=== PATIENT | female | born 1995 | race Caucasian/White ===

== ENCOUNTER 2019-10-21 08:21 | Emergency (ER) | payer BC ==
--- NOTE | 2019-10-21 08:40 | ERPHSYRPT ---
- History of Present Illness Time Seen by Provider: 10/21/19 08:37 Patient Subjective Stated Complaint: vaginal bleeding, 9 wks preg Triage Nursing Assessment: ptt oED c/o vag bleeding and cramping onset 0600 this am. reports being 9 wks preg, not confirmed yet with US. pt reports finding out she was this week, missed period and took home tests. urine sample preg test taken by Jael Vang Thursday. 3 living children, 3 pregnancies in past. denies problems with pregnancies before. rates 1/10 cramping. Physician History: Is a 24-year-old 4 para 3 female with last menstrual period 08/26/2019 who has a history of irregular periods off control pills who presents for mild clot cramping some bleeding and passage of small clots. She had a positive test at her PCP bout 72 hours ago. Timing/Duration: today Activites at Onset: none Quality: cramping Pain Radiation: none Severity of Pain-Max: mild Severity of Pain-Current: mild Prior abdominal problems: none Modifying Factors: Improves With: nothing Allergies/Adverse Reactions: No Known Drug Allergies Allergy (Unverified 10/21/19 08:35) Home Medications: Pnv No.95/Ferrous Fum/Folic AC [ Vitamin Tablet] 1 each PO DAILY 10/21/19 [History] Hx Tetanus, Diphtheria Vaccination/Date Given: Yes Hx Influenza Vaccination/Date Given: Yes Hx Pneumococcal Vaccination/Date Given: No Travel Risk - International Travel Have you traveled outside of the country in past 3 weeks: No - Coronavirus Screening Are you exhibiting any of the following symptoms?: No Close contact with a COVID-19 positive Pt in past 14-21 Days: No - Review of Systems Constitutional: No Fever, No Chills Eyes: No Symptoms Ears, Nose, & Throat: No Symptoms Respiratory: No Cough, No Dyspnea Cardiac: No Chest Pain, No Edema, No Syncope Abdominal/Gastrointestinal: No Abdominal Pain, No Nausea, No Vomiting, No Diarrhea Genitourinary Symptoms: Vaginal Bleeding, No Dysuria Musculoskeletal: No Back Pain, No Neck Pain Skin: No Rash Neurological: No Dizziness, No Focal Weakness, No Sensory Changes Psychological: No Symptoms Endocrine: No Symptoms All Other Systems: Reviewed and Negative - Past Medical History Pertinent Past Medical History: No Other Medical History: 3 vaginal deliveries - Past Surgical History Past Surgical History: No - Social History Smoking Status: Never smoker Exposure to second hand smoke: No Drug Use: none Patient Lives Alone: No - Female History Hx Now: Yes - Nursing Vital Signs Nursing Vital Signs: Initial Vital Signs Temperature 97.9 F 10/21/19 08:25 Pulse Rate 64 10/21/19 08:25 Respiratory Rate 16 10/21/19 08:25 Blood Pressure 110/73 10/21/19 08:25 O2 Sat by Pulse Oximetry 99 10/21/19 08:25 Pain Scale Pain Intensity 1 - Physical Exam General Appearance: no apparent distress, alert Eye Exam: PERRL/EOMI, eyes nml inspection Ears, Nose, Throat Exam: normal ENT inspection, TMs normal, pharynx normal, moist mucous membranes Neck Exam: normal inspection, non-tender, supple, full range of motion Respiratory Exam: normal breath sounds, lungs clear, No respiratory distress Cardiovascular Exam: regular rate/rhythm, normal heart sounds, normal peripheral pulses Gastrointestinal/Abdomen Exam: soft, No tenderness, No mass Back Exam: normal inspection, normal range of motion, No CVA tenderness, No vertebral tenderness Extremity Exam: normal inspection, normal range of motion, pelvis stable Neurologic Exam: alert, oriented x 3, cooperative, racking technician II-XII nml as tested, normal mood/affect, sensation nml, No motor deficits Skin Exam: normal color, warm, dry Lymphatic Exam: No adenopathy - Course Nursing assessment & vital signs reviewed: Yes Ordered Tests: Active Orders 24 hr Category Date Time Status OB <14 WKS 1ST GESTATION [US] Stat Exams 10/21/19 08:46 Completed CBC W DIFF Stat Lab 10/21/19 09:25 Completed CMP Stat Lab 10/21/19 09:25 Completed CULTURE,URINE Stat Lab 10/21/19 08:50 Received HCG, Quantitative (Inhouse) Stat Lab 10/21/19 09:25 Completed UA W/RFX UR CULTURE Stat Lab 10/21/19 08:50 Completed Lab/Rad Data: Laboratory Result Diagrams 10/21/19 09:25 10/21/19 09:25 Laboratory Results 10/21/19 10/21/19 10/21/19 Range/Units 09:25 09:25 08:50 WBC 8.3 (4.0-10.5) K/mm3 RBC 4.58 (4.1-5.4) M/mm3 Hgb 13.7 (12.0-16.0) gm/dl Hct 42.3 (35-47) % MCV 92.4 (78-100) fl MCH 29.9 (26-32) pg MCHC 32.4 (32-36) g/dl RDW 12.9 (11.5-14.0) % Plt Count 176 (150-450) K/mm3 MPV 11.4 H (7.5-11.0) fl Gran % 71.5 H (36.0-66.0) % Eos # (Auto) 0.11 (0-0.5) Absolute Lymphs (auto) 1.53 (1.0-4.6) Absolute Monos (auto) 0.70 (0.0-1.3) Lymphocytes % 18.5 L (24.0-44.0) % Monocytes % 8.5 (0.0-12.0) % Eosinophils % 1.3 (0.00-5.0) % Basophils % 0.2 (0.0-0.4) % Absolute Granulocytes 5.89 (1.4-6.9) Basophils # 0.02 (0-0.4) Sodium 139 (137-145) mmol/L Potassium 4.0 (3.5-5.1) mmol/L Chloride 107 (98-107) mmol/L Carbon Dioxide 24 (22-30) mmol/L Anion Gap 11.5 (5-15) MEQ/L BUN 12 (7-17) mg/dL Creatinine 0.70 (0.52-1.04) mg/dL Estimated GFR > 60.0 ML/MIN Glucose 105 (74-106) mg/dL Calcium 9.3 (8.4-10.2) mg/dL Total Bilirubin 0.40 (0.2-1.3) mg/dL AST 16 (14-36) U/L ALT 14 (0-35) U/L Alkaline Phosphatase 64 (38-126) U/L Serum Total Protein 7.0 (6.3-8.2) g/dL Albumin 4.2 (3.5-5.0) g/dL Beta HCG, Quant 26.71 mIU/ml Urine Color RED (YELLOW) Urine Appearance CLOUDY (CLEAR) Urine pH 5.0 (5-6) Ur Specific [place] 1.027 (1.005-1.025) Urine Protein 100 (Negative) Urine Ketones NEGATIVE (NEGATIVE) Urine Blood LARGE (0-5) Vito/ul Urine Nitrite NEGATIVE (NEGATIVE) Urine Bilirubin NEGATIVE (NEGATIVE) Urine Urobilinogen NEGATIVE (0-1) mg/dL Ur Leukocyte Esterase SMALL (NEGATIVE) Urine WBC (Auto) 16-25 (0-5) /HPF Urine RBC (Auto) >101 (0-2) /HPF U Epithel Cells (Auto) RARE (FEW) /HPF Urine Bacteria (Auto) NONE (NEGATIVE) /HPF Urine Mucus (Auto) SLIGHT (NEGATIVE) /HPF Urine Culture Reflexed YES (NO) Urine Glucose NEGATIVE (NEGATIVE) mg/dL - Progress Progress: unchanged Air Movement: good Progress Note: 10/21/19 10:29 Findings on the ultrasound of a possible developing gestational sac and a hCG of 26.71 are consistent with either an early or a miscarriage.she was instructed with the importance of following up with Viktoria Vang and repeat serial hCGs to determine viability of the . Blood Culture(s) Obtained: No Antibiotics given: No - Departure Departure Disposition: Home Clinical Impression: Early stage of Condition: Stable Critical Care Time: No Instructions: Bleeding With (DC)
[2019-10-21 09:13] VITALS: BP 116/76
[2019-10-21 09:30] LABS: Absolute Neutrophil Ct (ANC) 5.89 (1.4-6.9); BASOPHIL % 0.2 % (0.0-0.4); Basophil (Absolute #) 0.02 (0-0.4); Eosinophil % 1.3 % (0.00-5.0); Eosinophil (Absolute #) 0.11 (0-0.5); Hematocrit 42.3 % (35-47); Hemoglobin 13.7 gm/dl (12.0-16.0); Lymphocyte (Absolute #) 1.53 (1.0-4.6); Lymphocytes % 18.5 % (24.0-44.0); Mean Cell Volume 92.4 fl (78-100); Mean Corpuscular Hemoglobin 29.9 pg (26-32); Mean Corpuscular Hgb Concent. 32.4 g/dl (32-36); Mean Platelet Volume 11.4 fl (7.5-11.0); Monocytes % 8.5 % (0.0-12.0); Neutrophil % 71.5 % (36.0-66.0); Platelet Count 176 K/mm3 (150-450); Red Blood Count 4.58 M/mm3 (4.1-5.4); Red Cell Distribution Width 12.9 % (11.5-14.0); White Blood Count 8.3 K/mm3 (4.0-10.5)
[2019-10-21 09:31] LABS: Appearance CLOUDY (CLEAR); Bilirubin NEGATIVE (NEGATIVE); Blood LARGE Ery/ul (0-5); Epithelial Cells RARE /HPF (FEW); Glucose NEGATIVE (NEGATIVE); Ketones NEGATIVE (NEGATIVE); Leukocyte Esterase SMALL (NEGATIVE); Mucus SLIGHT /HPF (NEGATIVE); Nitrite NEGATIVE (NEGATIVE); Protein,Urine Dip 100 (Negative); Specific Gravity 1.027 (1.005-1.025); Urobilinogen NEGATIVE mg/dL (0-1)
[2019-10-21 09:32] LABS: RBC >101 /HPF (0-2)
--- NOTE | 2019-10-21 09:48 | XRAY ---
Indication: Bleeding and cramping. Two-dimensional transvaginal early OB ultrasound performed. Comparison: None Uterus is retroflexed measuring 7.6 x 5.1 x 4.2 cm. Myometrium appears homogeneous. Endometrial cavity demonstrates a tiny 3 mm cystic mass, possibly a developing gestational sac too small to calculate gestational age. No pole, heart tones, or fluid collection. Endometrial stripe measures 6.7 mm. Right ovary measures 1.7 x 2.7 x 1.7 cm and the left measures 2.9 x 1.9 x 1.4 cm with normal follicular cysts and perfusion bilaterally. No suspicious adnexal mass or free fluid. Impression: Tiny intrauterine cystic mass, possibly a developing gestational sac. No pole/heart tones. Correlate with serial beta hCG and follow-up sonogram regarding viability. Remaining sonogram is negative.
[2019-10-21 09:59] LABS: ALBUMIN 4.2 g/dL (3.5-5.0); ALKALINE PHOSPHATASE 64 U/L (38-126); ANION GAP 11.5 MEQ/L (5-15); BLOOD UREA NITROGEN 12 mg/dL (7-17); CHLORIDE 107 mmol/L (98-107); Calcium 9.3 mg/dL (8.4-10.2); Carbon Dioxide 24 mmol/L (22-30); EST GLOMERULAR FILTRATION RATE > 60.0 ML/MIN; Glucose 105 mg/dL (74-106); HCG, Quantitative (Inhouse) 26.71 mIU/ml; SGOT/AST 16 U/L (14-36); SGPT/ALT 14 U/L (0-35); SODIUM 139 mmol/L (137-145)
[2019-10-21 10:03] VITALS: PULSE 75; O2SAT 98
== END 2019-10-21 10:37 | disposition home or self-care (01) ==
LOC: ED 08:21
DX: O20.9 Hemorrhage in early pregnancy, unspecified (principal); Z3A.09 9 weeks gestation of pregnancy
CPT/HCPCS: 36415; 76801; 80053; 81001; 84702; 85025; 87086; 99284

== ENCOUNTER 2020-07-15 14:43 | Observation (INO) | payer MEDICAID ==
[2020-07-15 15:46] VITALS: BP 127/85; PULSE 109; O2SAT 97
[2020-07-15 15:50] LABS: Appearance SLIGHTLY CLOUDY (CLEAR); Bacteria FEW /HPF (NEGATIVE); Bilirubin NEGATIVE (NEGATIVE); Blood NEGATIVE Ery/ul (0-5); Epithelial Cells MODERATE /HPF (FEW); Glucose NEGATIVE (NEGATIVE); Ketones TRACE (NEGATIVE); Leukocyte Esterase SMALL (NEGATIVE); Mucus SLIGHT /HPF (NEGATIVE); Nitrite NEGATIVE (NEGATIVE); Protein,Urine Dip 30 (Negative); RBC 0-2 /HPF (0-2); Specific Gravity 1.018 (1.005-1.025); Urobilinogen 2 mg/dL (0-1)
[2020-07-15 15:58] LABS: Amphetamine,Urine NEGATIVE (NEGATIVE); Barbiturate,Urine NEGATIVE (NEGATIVE); Benzodiazepine,Urine NEGATIVE (NEGATIVE); Cocaine,Urine NEGATIVE (NEGATIVE); Methadone,Urine NEGATIVE (NEGATIVE); Opiate,Urine NEGATIVE (NEGATIVE); PCP,Urine NEGATIVE (NEGATIVE); THC,Urine NEGATIVE (NEGATIVE)
== END 2020-07-15 17:19 | disposition home or self-care (01) ==
LOC: OB 14:43
PROVIDERS: ADMIT Family Medicine; ATTEND Family Medicine
DX: Z34.82 Encounter for supervision of other normal pregnancy, second trimester (principal); Z3A.34 34 weeks gestation of pregnancy
CPT/HCPCS: 80307; 81001; 87086; G0378

== ENCOUNTER 2020-07-25 17:20 | Observation (INO) | payer MEDICAID ==
[2020-07-25] MEDS ORDERED: Lactated Ringers 1,000 ML IV ONE ×2 (18:05→18:10)
[2020-07-25 19:00] LABS: BASOPHIL % 0.3 % (0.0-0.4); Basophil (Absolute #) 0.02 (0-0.4); Eosinophil % 0.5 % (0.00-5.0); Eosinophil (Absolute #) 0.03 (0-0.5); Hematocrit 33.9 % (35-47); Hemoglobin 10.4 gm/dl (12.0-16.0); Lymphocyte (Absolute #) 0.93 (1.0-4.6); Mean Cell Volume 90.6 fl (78-100); Mean Corpuscular Hemoglobin 27.8 pg (26-32); Mean Corpuscular Hgb Concent. 30.7 g/dl (32-36); Mean Platelet Volume 11.1 fl (7.5-11.0); Monocyte (Absolute #) 0.51 (0.0-1.3); Monocytes % 8.2 % (0.0-12.0); Platelet Count 157 K/mm3 (150-450); Red Blood Count 3.74 M/mm3 (4.1-5.4); Red Cell Distribution Width 14.6 % (11.5-14.0); White Blood Count 6.2 K/mm3 (4.0-10.5)
[2020-07-25 19:11] VITALS: BP 120/74; PULSE 93
[2020-07-25 19:12] LABS: ALBUMIN 3.5 g/dL (3.5-5.0); ALKALINE PHOSPHATASE 138 U/L (38-126); ANION GAP 12.3 MEQ/L (5-15); BLOOD UREA NITROGEN 4 mg/dL (7-17); CHLORIDE 106 mmol/L (98-107); Calcium 9.1 mg/dL (8.4-10.2); Carbon Dioxide 22 mmol/L (22-30); Creatinine 1 0.45 mg/dL (0.52-1.04); EST GLOMERULAR FILTRATION RATE > 60.0 ML/MIN; Glucose 80 mg/dL (74-106); Potassium 3.8 mmol/L (3.5-5.1); SGOT/AST 16 U/L (14-36); SGPT/ALT 10 U/L (0-35); SODIUM 136 mmol/L (137-145); Total Protein 6.5 g/dL (6.3-8.2)
[2020-07-25 19:13] LABS: Creatinine, Urine Random 48.9 mg/dl
== END 2020-07-25 20:50 | disposition home or self-care (01) ==
LOC: OB 17:20 → MED SURG 17:45
PROVIDERS: ADMIT Family Medicine; ATTEND Family Medicine
DX: Z34.83 Encounter for supervision of other normal pregnancy, third trimester (principal); Z3A.35 35 weeks gestation of pregnancy
CPT/HCPCS: 36415; 59025; 80053; 82570; 84156; 85025; G0378

== ENCOUNTER 2020-08-03 21:25 | Observation (INO) | payer MEDICAID, OTHER ==
[2020-08-03 22:12] LABS: Appearance SLIGHTLY CLOUDY (CLEAR); Bilirubin NEGATIVE (NEGATIVE); Blood NEGATIVE Ery/ul (0-5); Epithelial Cells RARE /HPF (FEW); Glucose NEGATIVE (NEGATIVE); Ketones NEGATIVE (NEGATIVE); Leukocyte Esterase NEGATIVE (NEGATIVE); Mucus SLIGHT /HPF (NEGATIVE); Nitrite NEGATIVE (NEGATIVE); Protein,Urine Dip NEGATIVE (Negative); Specific Gravity 1.019 (1.005-1.025); Urobilinogen 2 mg/dL (0-1)
[2020-08-03 22:21] LABS: Amphetamine,Urine NEGATIVE (NEGATIVE); Barbiturate,Urine NEGATIVE (NEGATIVE); Benzodiazepine,Urine NEGATIVE (NEGATIVE); Cocaine,Urine NEGATIVE (NEGATIVE); Methadone,Urine NEGATIVE (NEGATIVE); Opiate,Urine NEGATIVE (NEGATIVE); PCP,Urine NEGATIVE (NEGATIVE); THC,Urine NEGATIVE (NEGATIVE)
[2020-08-04 00:45] VITALS: BP 119/70; PULSE 96; O2SAT 96
== END 2020-08-04 00:40 | disposition home or self-care (01) ==
LOC: OB 21:25
PROVIDERS: ADMIT Family Medicine; ATTEND Family Medicine
DX: Z34.83 Encounter for supervision of other normal pregnancy, third trimester (principal); Z3A.36 36 weeks gestation of pregnancy
CPT/HCPCS: 59025; 80307; 81001; G0378

== ENCOUNTER 2020-08-07 03:55 | Observation (INO) | payer OTHER ==
[2020-08-07 04:33] VITALS: O2SAT 97
[2020-08-07 04:47] LABS: Appearance SLIGHTLY CLOUDY (CLEAR); Bilirubin NEGATIVE (NEGATIVE); Blood NEGATIVE Ery/ul (0-5); Epithelial Cells RARE /HPF (FEW); Glucose NEGATIVE (NEGATIVE); Ketones NEGATIVE (NEGATIVE); Leukocyte Esterase NEGATIVE (NEGATIVE); Mucus SLIGHT /HPF (NEGATIVE); Nitrite NEGATIVE (NEGATIVE); Protein,Urine Dip NEGATIVE (Negative); Specific Gravity 1.017 (1.005-1.025); Urobilinogen NEGATIVE mg/dL (0-1)
[2020-08-07 04:59] LABS: Amphetamine,Urine NEGATIVE (NEGATIVE); Barbiturate,Urine NEGATIVE (NEGATIVE); Benzodiazepine,Urine NEGATIVE (NEGATIVE); Cocaine,Urine NEGATIVE (NEGATIVE); Methadone,Urine NEGATIVE (NEGATIVE); Opiate,Urine NEGATIVE (NEGATIVE); PCP,Urine NEGATIVE (NEGATIVE); THC,Urine NEGATIVE (NEGATIVE)
[2020-08-07] MEDS ORDERED: TYLENOL EXTRA STRENGTH 500 MG PO ONE (09:00)
[2020-08-07] MEDS ORDERED: Lactated Ringers 1,000 ML IV ONE (09:00)
[2020-08-07 10:02] VITALS: BP 121/79; PULSE 74
== END 2020-08-07 12:00 | disposition home or self-care (01) ==
LOC: OB 03:55
PROVIDERS: ADMIT Family Medicine; ATTEND Family Medicine
DX: Z34.83 Encounter for supervision of other normal pregnancy, third trimester (principal); Z3A.37 37 weeks gestation of pregnancy
CPT/HCPCS: 80307; 81001; A9270-GY

== ENCOUNTER 2020-08-16 16:55 | Observation (INO) | payer OTHER ==
[2020-08-16 17:39] VITALS: O2SAT 99
[2020-08-16 20:04] VITALS: BP 120/75; PULSE 86
== END 2020-08-16 18:35 | disposition home or self-care (01) ==
LOC: MED SURG 16:55
PROVIDERS: ADMIT Family Medicine; ATTEND Family Medicine
DX: Z34.83 Encounter for supervision of other normal pregnancy, third trimester (principal); Z3A.38 38 weeks gestation of pregnancy
CPT/HCPCS: 59025; G0378

== ENCOUNTER 2020-08-18 22:43 | Inpatient (IN) | payer OTHER ==
[2020-08-18] MEDS ORDERED: PITOCIN 30 UNITS/ LR 500 ML 30 UNITS/500 ML IV.SOLN. IV SCH (23:30)
[2020-08-18] MEDS ORDERED: Sodium Chloride 0.9% 1000 ML 0 ML ONE (23:33)
[2020-08-18] MEDS ORDERED: Lactated Ringers 1,000 ML IV ONE ×2 (23:36→23:47)
[2020-08-18] MEDS ORDERED: Ephedrine Sulfate 50 MG/ML IV PRN (23:47)
[2020-08-18] MEDS ORDERED: OB EPIDURAL NAROPIN/SUFENTANIL IN NACL EPIDURAL PRN (23:47)
[2020-08-18 23:51] LABS: Amphetamine,Urine NEGATIVE (NEGATIVE); Barbiturate,Urine NEGATIVE (NEGATIVE); Benzodiazepine,Urine NEGATIVE (NEGATIVE); Cocaine,Urine NEGATIVE (NEGATIVE); Methadone,Urine NEGATIVE (NEGATIVE); Opiate,Urine NEGATIVE (NEGATIVE); PCP,Urine NEGATIVE (NEGATIVE); THC,Urine NEGATIVE (NEGATIVE)
[2020-08-19 00:02] LABS: Absolute Neutrophil Ct (ANC) 4.82 (1.4-6.9); BASOPHIL % 0.3 % (0.0-0.4); Basophil (Absolute #) 0.02 (0-0.4); Eosinophil % 0.7 % (0.00-5.0); Eosinophil (Absolute #) 0.05 (0-0.5); Hematocrit 35.5 % (35-47); Hemoglobin 11.1 gm/dl (12.0-16.0); Lymphocyte (Absolute #) 1.42 (1.0-4.6); Lymphocytes % 20.9 % (24.0-44.0); Mean Corpuscular Hemoglobin 28.5 pg (26-32); Mean Corpuscular Hgb Concent. 31.3 g/dl (32-36); Mean Platelet Volume 11.3 fl (7.5-11.0); Monocytes % 7.3 % (0.0-12.0); Neutrophil % 70.8 % (36.0-66.0); Platelet Count 156 K/mm3 (150-450); Red Cell Distribution Width 16.5 % (11.5-14.0); White Blood Count 6.8 K/mm3 (4.0-10.5)
[2020-08-19] MEDS ORDERED: Dermoplast Spray TP PRN (06:12)
[2020-08-19] MEDS ORDERED: Anucort-HC SUPPOSITORY PR PRN (06:12)
[2020-08-19] MEDS ORDERED: LANSINOH 40 GM TOP PRN (06:12)
[2020-08-19] MEDS ORDERED: CORTISONE 1% CREAM TP PRN (06:12)
[2020-08-19] MEDS ORDERED: TYLENOL EXTRA STRENGTH 500 MG PO PRN (06:12)
[2020-08-19] MEDS ORDERED: Dulcolax 10 MG SUPP PR PRN (06:12)
[2020-08-19] MEDS ORDERED: Mylicon 80MG PO PRN (06:12)
[2020-08-19] MEDS ORDERED: TUCKS TP PRN (06:12)
[2020-08-19] MEDS ORDERED: NORCO 5/325 MG PO PRN (06:12)
[2020-08-19] MEDS ORDERED: Adacel Vial IM ONE (08:00)
[2020-08-19] MEDS: FERREX 150 PO SCH (11:06)
[2020-08-19] MEDS: Colace 100 MG PO SCH ×2 (11:06→22:04)
[2020-08-20] MEDS: MOTRIN 400 MG PO PRN ×3 (04:36→19:24)
[2020-08-20] MEDS ORDERED: Lactated Ringers 1,000 ML IV SCH (05:00)
[2020-08-20 05:24] LABS: BASOPHIL % 0.1 % (0.0-0.4); Basophil (Absolute #) 0.01 (0-0.4); Eosinophil % 0.9 % (0.00-5.0); Eosinophil (Absolute #) 0.08 (0-0.5); Hematocrit 38.3 % (35-47); Lymphocyte (Absolute #) 1.64 (1.0-4.6); Lymphocytes % 18.3 % (24.0-44.0); Mean Corpuscular Hemoglobin 28.5 pg (26-32); Mean Corpuscular Hgb Concent. 31.3 g/dl (32-36); Mean Platelet Volume 12.1 fl (7.5-11.0); Monocyte (Absolute #) 0.82 (0.0-1.3); Monocytes % 9.2 % (0.0-12.0); Neutrophil % 71.5 % (36.0-66.0); Platelet Count 132 K/mm3 (150-450); Red Blood Count 4.21 M/mm3 (4.1-5.4); Red Cell Distribution Width 16.8 % (11.5-14.0)
[2020-08-20] MEDS: FERREX 150 PO SCH (11:05)
[2020-08-20] MEDS: Colace 100 MG PO SCH ×2 (11:05→21:09)
[2020-08-21] MEDS: MOTRIN 400 MG PO PRN (04:11)
[2020-08-21 05:38] LABS: ALBUMIN 3.3 g/dL (3.5-5.0); ALKALINE PHOSPHATASE 137 U/L (38-126); ANION GAP 10.7 MEQ/L (5-15); BLOOD UREA NITROGEN 13 mg/dL (7-17); CHLORIDE 106 mmol/L (98-107); Calcium 9.4 mg/dL (8.4-10.2); Carbon Dioxide 25 mmol/L (22-30); EST GLOMERULAR FILTRATION RATE > 60.0 ML/MIN; Glucose 90 mg/dL (74-106); Potassium 3.9 mmol/L (3.5-5.1); SGOT/AST 21 U/L (14-36); SGPT/ALT 11 U/L (0-35); SODIUM 138 mmol/L (137-145); Total Protein 6.2 g/dL (6.3-8.2)
[2020-08-21 06:56] VITALS: O2SAT 98
--- NOTE | 2020-08-21 07:43 | PCM.DS ---
Discharge Summary Date of Admission: 08/18/20 22:43 Admitting Physician: KSENIA WALSH MD Consults: Consults on Case 08/18/20 23:48 Notify Anesthesia Provider PRN 08/19/20 06:12 Notify Physician ROUTINE 08/19/20 06:25 Navigation ONCE Primary Care Provider: ALEJANDRA ENRIQUEZ Allergies Allergies No Known Drug Allergies Allergy (Verified 08/19/20 02:23) Hospital Summary - Hospital Course Hospital Course: Pt is 25 yo G5 now P4 pt of Dr. Walsh, came to in spontaneous labor at 39 weeks and delivered healthy 7 lb male via . No complications, no repair, placenta delivered spontaneously, intact. . Bleeding is moderate. No complaints. Will be discharged to home today to f/u with Dr. Walsh in 4-6 weeks. Pt did have mild thrombocytopenia on PPD #1 - 132 - CMP was done and LFTs are wnl. Will recheck today and in 3d. - Vitals & Intake/Output Vital Signs: Vital Signs Temperature 98.2 F 08/21/20 04:00 Pulse Rate 55 L 08/21/20 04:00 Respiratory Rate 18 08/21/20 04:00 Blood Pressure 136/75 08/21/20 04:00 O2 Sat by Pulse Oximetry 98 08/21/20 04:00 Intake & Output: Intake & Output 08/18/20 08/19/20 08/20/20 08/21/20 11:59 11:59 11:59 11:59 Intake Total 1700 1640 1850 Output Total 600 1 Balance 1100 1639 1850 Weight 190 kg - Lab Result Diagrams: 08/20/20 04:27 08/21/20 04:15 Lab Results-Last 24 Hrs: Lab Results-Last 24 Hours 08/21/20 Range/Units 04:15 Sodium 138 (137-145) mmol/L Potassium 3.9 (3.5-5.1) mmol/L Chloride 106 (98-107) mmol/L Carbon Dioxide 25 (22-30) mmol/L Anion Gap 10.7 (5-15) MEQ/L BUN 13 (7-17) mg/dL Creatinine 1.00 (0.52-1.04) mg/dL Estimated GFR > 60.0 ML/MIN Glucose 90 (74-106) mg/dL Calcium 9.4 (8.4-10.2) mg/dL Total Bilirubin 0.20 (0.2-1.3) mg/dL AST 21 (14-36) U/L ALT 11 (0-35) U/L Alkaline Phosphatase 137 H (38-126) U/L Serum Total Protein 6.2 L (6.3-8.2) g/dL Albumin 3.3 L (3.5-5.0) g/dL Micro Results-Entire Visit: Microbiology 08/19/20 04:00 Urine Culture - Final Catherized NO GROWTH Discharge Exam General Appearance: no apparent distress, alert, other (sleeping soundly; cries appropriately during exam) Neurologic Exam: oriented x 3, cooperative Eye Exam: eyes nml inspection Ears, Nose, Throat Exam: moist mucous membranes Neck Exam: normal inspection Respiratory Exam: normal breath sounds, lungs clear, No crackles/rales, No rhonchi, No wheezing Cardiovascular Exam: regular rate/rhythm, normal heart sounds, No murmur Gastrointestinal/Abdomen Exam: soft, normal bowel sounds, other (fundus firm inferior to umbilicus), No tenderness, No distention, No guarding, No rebound Extremity Exam: normal inspection, No pedal edema, No swelling Skin Exam: normal color, warm, dry, No rash Final Diagnosis/Problem List - Final Discharge Diagnosis/Problem (1) Vaginal delivery Current Visit: Yes Status: Acute Code(s): O80 - ENCOUNTER FOR FULL-TERM UNCOMPLICATED DELIVERY (2) Thrombocytopenia Current Visit: Yes Status: Acute Assessment & Plan: Mild, with nl LFTs. Recheck in this am, and in 3d if abnormal today. - Discharge Disposition: Home, Self-Care Condition: Good Prescriptions: New Ibuprofen 800 mg PO TID PRN #35 tablet PRN Reason: Pain Continue Pnv No.95/Ferrous Fum/Folic AC [ Vitamin Tablet] 1 each PO DAILY Famotidine [Pepcid] 40 mg PO DAILY Bisacodyl 10 mg [Dulcolax 10 MG SUPP] 10 mg RC DAILY PRN PRN Reason: Constipation Discontinued Ferrous Sulfate 325 mg [Feosol 325 mg] 650 mg PO DAILY Follow up with: ALEJANDRA ENRIQUEZ [Primary Care Provider] -
[2020-08-21 08:16] LABS: Hematocrit 38.6 % (35-47); Hemoglobin 11.8 gm/dl (12.0-16.0); Mean Cell Volume 92.8 fl (78-100); Mean Corpuscular Hemoglobin 28.4 pg (26-32); Mean Corpuscular Hgb Concent. 30.6 g/dl (32-36); Mean Platelet Volume 12.5 fl (7.5-11.0); Platelet Count 141 K/mm3 (150-450); Red Blood Count 4.16 M/mm3 (4.1-5.4); Red Cell Distribution Width 16.9 % (11.5-14.0); White Blood Count 8.3 K/mm3 (4.0-10.5)
[2020-08-21] MEDS: FERREX 150 PO SCH (08:34)
[2020-08-21] MEDS: Colace 100 MG PO SCH (08:34)
[2020-08-21 09:17] VITALS: BP 138/82; PULSE 64
== END 2020-08-21 12:10 | disposition home or self-care (01) | DRG 807 ==
LOC: OBSVTOIN 22:43 → OB 22:43 → MED SURG 08-19 20:18
PROVIDERS: ADMIT Family Medicine; ATTEND Family Medicine
PROC: 10E0XZZ Delivery of Products of Conception, External Approach (ICD-10-PCS; principal; 2020-08-19)
DX: O80 Encounter for full-term uncomplicated delivery (principal); Z37.0 Single live birth; Z3A.39 39 weeks gestation of pregnancy; D69.6 Thrombocytopenia, unspecified; D64.9 Anemia, unspecified
CPT/HCPCS: 36415; 59025; 80053; 80307; 84112; 85025; 85027; 87086; 90471; 90715; G0378; J2590; J2795; A9270-GY